=== PATIENT | female | born 1970 | race Caucasian/White ===

== ENCOUNTER 2025-07-18 09:05 | Outpatient (CLI) | payer OTHER ==
[2025-07-18] MEDS ORDERED: Iopamidol 370 76% 100 ML VIAL ONE (10:07)
== END 2025-07-18 09:06 | disposition home or self-care (01) ==
LOC: NM 09:05
PROVIDERS: ATTEND Radiology Radiation Oncology
DX: C50.412 Malignant neoplasm of upper-outer quadrant of left female breast (principal); K76.89 Other specified diseases of liver; Z17.0 Estrogen receptor positive status [ER+]; R93.41 Abnormal radiologic findings on diagnostic imaging of renal pelvis, ureter, or bladder; N94.89 Other specified conditions associated with female genital organs and menstrual cycle
CPT/HCPCS: 71260; 74177; 78306; A9503; Q9967